=== PATIENT | male | born 1950 | race Caucasian/White ===

== ENCOUNTER → 2017-04-29 | Outpatient (CLI) | payer OTHER ==
[~2017-04-29] MED LIST: XANAX0.5 MG PO
== END | disposition home or self-care (01) ==
DX: R26.2 Difficulty in walking, not elsewhere classified (principal); M25.561 Pain in right knee; M25.661 Stiffness of right knee, not elsewhere classified; M62.81 Muscle weakness (generalized); M17.11 Unilateral primary osteoarthritis, right knee
CPT/HCPCS: 97161 GP; 97165 GO; 97530 GP; 97537 GO; G8978 GP; G8979 GP; G8980 GP; G8987 GO; G8988 GO; G8989 GO

== ENCOUNTER 2017-05-26 08:46 | Day surgery (SDC) | payer OTHER ==
[~2017-05-26] VITALS: Ht 175.3 cm; Wt 102.6 kg
[~2017-05-26 08:46] MED LIST changes: +ANDROGEL1.25 GM TD; +ASPIRIN81 M2 PO; +CIALIS5 MG PO; +FLORINEF ACETA0.1 MG PO; +IRON325 M1 PO; +LEXAPRO10 MG PO; +LIPITOR20 MG PO; +MELATIN3 MG PO; +MULTIPLE VITAM1 EACH PO; +OSTEO BI-FLEX1 EAC1 PO; +SODIUM CHLORIDE1 G1 PO; +TYLENOL EXTRA500 MG PO; +VITAMIN D32000 UNI1 PO
[2017-05-26 09:38] LABS: POINT-OF-CARE METER ID UU14174212
[2017-05-26 10:02] VITALS: BP 144/72
== END 2017-05-26 11:18 | disposition home or self-care (01) ==
LOC: SDC 08:46 → 2SOUTH 08:46 → SDC 11:18 → EDSTATUS 14:18 → 2SOUTH 15:04
PROVIDERS: Orthopaedic Surgery
PROC: 0SJCXZZ Inspection of Right Knee Joint, External Approach (ICD-10-PCS; principal; 2017-05-26)
DX: M17.11 Unilateral primary osteoarthritis, right knee (principal); Z53.09 Procedure and treatment not carried out because of other contraindication; R56.9 Unspecified convulsions
CPT/HCPCS: 82948; 87641; J0690; J7050

== ENCOUNTER 2017-08-10 22:02 | Inpatient (IN) | payer OTHER ==
[~2017-08-10] VITALS: Ht 175.3 cm; Wt 108.2 kg
[~2017-08-10 22:02] MED LIST changes: -ANDROGEL1.25 GM TD; +ANDROGEL75 GM TP
[2017-08-11 07:18] VITALS: BP 149/78
[2017-08-11 07:46] LABS: ALBUMIN 4.6 G/DL (3.2-4.8); ALKALINE PHOSPHATASE 83 IU/L (3-129); ALT (GPT) 19 IU/L (3-49); AST (GOT) 19 IU/L (2-34); CHLORIDE 106 MEQ/L (99-109); CREATININE 1.1 MG/DL (0.6-1.3); GFR ESTIMATE (CALCULATED) > 59 mL/min/ (58.99-99999); GLUCOSE 100 mg/dL (70-99); POTASSIUM 3.9 MEQ/L (3.7-5.4); SODIUM 146 MEQ/L (136-147); TOTAL BILIRUBIN 0.9 MG/DL (0.0-1.0); UREA NITROGEN (BUN) 15 mg/dL (9-23)
[2017-08-11 07:50] VITALS: BP 149/78
[2017-08-11 13:47] VITALS: BP 119/66
[2017-08-11 15:32] VITALS: BP 122/76
[2017-08-11 19:50] VITALS: BP 121/64
[2017-08-12 00:23] VITALS: BP 149/72
[2017-08-12 04:32] VITALS: BP 144/70
[2017-08-12 07:40] VITALS: BP 160/76
[2017-08-12 09:13] LABS: HEMATOCRIT 36.8 % (38.0-50.0); MCV 92.7 FL (86-99)
[2017-08-12 09:20] LABS: HEMOGLOBIN 12.4 G/DL (12.5-16.6)
[2017-08-12 09:48] LABS: ALBUMIN 3.6 G/DL (3.2-4.8); ALKALINE PHOSPHATASE 62 IU/L (3-129); ALT (GPT) 15 IU/L (3-49); AST (GOT) 16 IU/L (2-34); CHLORIDE 103 MEQ/L (99-109); CREATININE 1.1 MG/DL (0.6-1.3); GFR ESTIMATE (CALCULATED) > 59 mL/min/ (58.99-99999); POTASSIUM 3.7 MEQ/L (3.7-5.4); UREA NITROGEN (BUN) 13 mg/dL (9-23)
[2017-08-12 09:49] LABS: GLUCOSE 173 mg/dL (70-99); SODIUM 136 MEQ/L (136-147); TOTAL BILIRUBIN 1.1 MG/DL (0.0-1.0); TOTAL PROTEIN 5.8 G/DL (6.4-8.3)
[2017-08-12 11:33] VITALS: BP 113/62
[2017-08-12 15:37] VITALS: BP 114/65
[2017-08-12 20:14] VITALS: BP 121/56
[2017-08-13 00:08] VITALS: BP 134/69
[2017-08-13 04:18] VITALS: BP 134/63
[2017-08-13 08:00] VITALS: BP 162/74
[2017-08-13] MEDS ORDERED: SENNA PLUS TAB1 EACH PO (09:15)
[2017-08-13] MEDS ORDERED: ELIQUIS2.5 MG PO (09:16)
[2017-08-13] MEDS ORDERED: ENDOCET 5-3251 EACH PO (09:16)
[2017-08-13] MEDS ORDERED: CELECOXIB200 MG PO (09:16)
[2017-08-13] MEDS ORDERED: ONDANSETRON ODT4 MG PO (09:16)
[2017-08-13 12:12] VITALS: BP 159/57
== END 2017-08-13 15:39 | DRG 470 ==
LOC: ENRESERV 22:02 → 2SOUTH 08-11 06:51 → 3WEST 08-11 13:29 → 2SOUTH 08-11 13:56 → 3WEST 08-13 15:39
PROVIDERS: Nurse Practitioner Family; Orthopaedic Surgery
PROC: 0SRC0J9 Replacement of Right Knee Joint with Synthetic Substitute, Cemented, Open Approach (ICD-10-PCS; principal; 2017-08-11)
PROC: 5A09357 Assistance with Respiratory Ventilation, Less than 24 Consecutive Hours, Continuous Positive Airway Pressure (ICD-10-PCS; 2017-08-11)
DX: M17.11 Unilateral primary osteoarthritis, right knee (principal); R56.9 Unspecified convulsions; G47.33 Obstructive sleep apnea (adult) (pediatric); I10 Essential (primary) hypertension; I25.10 Atherosclerotic heart disease of native coronary artery without angina pectoris; E78.5 Hyperlipidemia, unspecified; F32.9 Major depressive disorder, single episode, unspecified; E29.1 Testicular hypofunction; I25.2 Old myocardial infarction; Z95.5 Presence of coronary angioplasty implant and graft; Z79.82 Long term (current) use of aspirin; Z80.1 Family history of malignant neoplasm of trachea, bronchus and lung
CPT/HCPCS: 80053; 85014; 85018; 87641; 94660; 94799; C1713; J0131; J0171; J0690; J1885; J2250; J2370; J2405; J2795; J3010; J7050; J7120; L1820